=== PATIENT | female | born 1935 | race Caucasian/White ===

== ENCOUNTER 2018-09-12 08:45 | Inpatient (IN) | payer MEDICARE ==
--- NOTE | 2018-09-12 09:06 | ED ---
Abdominal Pain/Female - HPI Summary HPI Summary: An 83 y/o female presents to [facility] with a chief complaint of abdominal pain since 09/09/18. The patient reports N/V/D since this morning. At triage she rated her pain as a 4/10 in severity. She denies any fevers, chills, cough, CP, or SOB. She claims that she has not been eating as much lately, and has some increased frequency in urination and some dysuria, but no hematuria. She has a Hx of HTN and is taking medication for it. She denies a Hx of CHF or DM. She reports a Hx of colon cancer 13 years ago and a SHx of colon surgery and gallbladder surgery. She also reports that she has a hernia, but was told that it was nothing to worry about unless she has pain, which she currently has. Vital signs while in room - HR: 92 bpm, O2 Sat: 94, BP: 121/79. - History of Current Complaint Chief Complaint: EDAbdPain Stated Complaint: ABD PAIN, VOMITING PER PT. Time Seen by Provider: 09/12/18 08:58 Hx Obtained From: Patient, Family/Gang Bore Operator Onset/Duration: Sudden Onset, Lasting Days, Still Present Timing: Days Severity Initially: Moderate Severity Currently: Moderate Pain Intensity: 4 Pain Scale Used: 0-10 Numeric Location: Diffuse Radiates: No Character: Other: - Unable to describe Aggravating Factor(s): Nothing Alleviating Factor(s): Nothing Associated Signs and Symptoms: Positive: Urinary Symptoms, Nausea, Vomiting, Diarrhea. Negative: Fever, Cough, Chest Pain Allergies/Adverse Reactions: Allergies Allergy/AdvReac Type Severity Reaction Status Date / Time Penicillins Allergy Hives Verified 09/12/18 08:53 PMH/Surg Hx/FS Hx/Imm Hx Endocrine/Hematology History: Denies: Hx Diabetes, Hx Thyroid Disease Cardiovascular History: Reports: Hx Hypertension Denies: Hx Congestive Heart Failure, Hx Myocardial Infarction Respiratory History: Denies: Hx Asthma, Hx Chronic Obstructive Pulmonary Disease (COPD) GI History: Denies: Hx Ulcer Sensory History: Reports: Hx Contacts or Glasses Opthamlomology History: Reports: Hx Contacts or Glasses - Cancer History Cancer Type, Location and Year: colon cancer - w/ chemo April 2006 - Surgical History Surgery Procedure, Year, and Place: hysterectomy. gall bladder removal. colon tumor removal. cataract removal Infectious Disease History: No Infectious Disease History: Denies: Hx Clostridium Difficile, Hx Hepatitis, Hx Human Immunodeficiency Virus (HIV), Hx of Known/Suspected MRSA, Hx Shingles, Hx Tuberculosis, Traveled Outside the [place] in Last 30 Days - Family History Known Family History: Positive: Hypertension, Respiratory Disease - COPD (mother ) - Social History Alcohol Use: Rare Alcohol Amount: 1x week Substance Use Type: Reports: None Hx Tobacco Use: No Smoking Status (MU): Former Smoker Type: Cigarettes Have You Smoked in the Last Year: No Review of Systems Negative: Fever, Chills Negative: Chest Pain Negative: Cough Positive: Abdominal Pain, Vomiting, Diarrhea, Nausea Positive: dysuria, frequency. Negative: hematuria All Other Systems Reviewed And Are Negative: Yes Physical Exam - Summary Physical Exam Summary: GENERAL: Patient is a well-developed and nourished F who is lying comfortable in the stretcher. Patient is not in any acute respiratory distress. HEAD AND FACE: Normocephalic EYES: PERRLA, EOMI x 2. EARS: Hearing grossly intact. MOUTH: Oropharynx within normal limits. NECK: Supple, trachea is midline, no adenopathy, no JVD, no carotid bruit. CHEST: Symmetric, no tenderness at palpation LUNGS: Clear to auscultation bilaterally. No wheezing or crackles. CVS: Regular rate and rhythm, S1 and S2 present, no murmurs or gallops appreciated. ABDOMEN: Mild diffuse TTP. Bowel sounds are normal. No abdominal abnormal pulsations. EXTREMITIES: Full ROM in all major joints, no edema, no cyanosis or clubbing. NEURO: Alert and oriented x 3. No acute neurological deficits. Speech is normal and follows commands. SKIN: Dry and warm Triage Information Reviewed: Yes Vital Signs On Initial Exam: Initial Vitals Temp Pulse Resp BP Pulse Ox 99.1 F 98 18 117/78 96 09/12/18 08:49 09/12/18 08:49 09/12/18 08:49 09/12/18 08:49 09/12/18 08:49 Vital Signs Reviewed: Yes Diagnostics - Vital Signs Vital Signs Temp Pulse Resp BP Pulse Ox 09/12/18 08:49 99.1 F 98 18 117/78 96 - Laboratory Result Diagrams: 09/12/18 09:23 09/12/18 09:23 Lab Statement: Any lab studies that have been ordered have been reviewed, and results considered in the medical decision making process. - CT abdomen/pelvis CT Interpretation Completed By: Radiologist Summary of CT Findings: There is a large anterior abdominal wall hernia. The hernia contains the. antrum of the stomach which is moderately dilated itself. In addition more inferiorly in. the hernia there is small bowel herniation with dilated loops and collapsed distal loops. This possibility that this may be a source of small bowel obstruction should BE. considered. ED physician has reviewed this imaging report. - EKG 09:25 Cardiac Rate: NL - 81 bpm EKG Rhythm: Sinus Rhythm Summary of EKG Findings: EKG at 09:25 shows normal sinus rhythm at 81 bpm with PACs. Re-Evaluation - Re-Evaluation First Eval Re-Evaluation Time: 12:58 Change: Unchanged Comment: Informed patient about results and plan for admission. Abdominal Pain Fem Course/Dx - Course Course Of Treatment: An 83 y/o female presents to [facility] with a chief complaint of abdominal pain since 09/09/18. Workup is remarkable. The physical exam revealed mild diffuse TTP. EKG at 09:25 shows normal sinus rhythm at [address] abdomen/pelvis impression: There is a large anterior abdominal wall hernia. The hernia contains the. antrum of the stomach which is moderately dilated itself. In addition more inferiorly in. the hernia there is small bowel herniation with dilated loops and collapsed distal loops. In the ED course the patient was given Rocephin, Iodixanol (contrast) IV, Zofran IV and Protonix IV. Bloodwork and chemistries obtained. Urines are consitent with a UTI. Case discussed with Dr. Carvajla, surgery, who recommended admission. The patient will be admitted. Case discussed with hospitalist, Dr. Colvin. I discussed results with patient. The patient agrees with this plan. - Diagnoses Provider Diagnoses: UTI (urinary tract infection), Abdominal hernia with obstruction - Provider Notifications Discussed Care Of Patient With: Bravo Carvajal Time Discussed With Above Provider: 12:58 Instructed by Provider To: Other - recommended admission Discharge - Sign-Out/Discharge Documenting (check all that apply): Patient Departure - admit Patient Received Moderate/Deep Sedation with Procedure: No - Discharge Plan Condition: Fair Disposition: ADMITTED TO [facility] - Billing Disposition and Condition Condition: FAIR Disposition: Admitted to [facility] - Attestation Statements Document Initiated by Scribe: Yes Documenting Scribe: Stevan Arriaga Provider For Whom Scribe is Documenting (Include Credential): Alcides Ruvalcaba MD Scribe Attestation: I, Stevan Arriaga, scribed for Alcides Ruvalcaba MD on 09/13/18 at 0839. Scribe Documentation Reviewed: Yes Provider Attestation: The documentation as recorded by the Stevan dunlap accurately reflects the service I personally performed and the decisions made by me, Vik Ruvalcaba MD Status of Scribe Document: Viewed Consult Consult: At 13:[address] Colvin, Hospitalist, who accepted the patient for admission.
[2018-09-12] MEDS ORDERED: Ondansetron INJ* 2 MG/ML VIAL IV ONE (09:17)
[2018-09-12] MEDS ORDERED: Pantoprazole IV* 40 MG IV ONE (09:18)
[2018-09-12] MEDS ORDERED: NS 0.9% 1000 ML** 1,000 ML IV ONE (09:20)
[2018-09-12 09:29] LABS: ABS Basophils 0 10^3/ul (0-0.2); ABS Eosinophils 0 10^3/ul (0-0.6); ABS Lymphocytes 0.9 10^3/ul (1.0-4.8); ABS Monocytes 0.8 10^3/ul (0-0.8); ABS Neutrophils 7.6 10^3/ul (1.5-7.7); ABS Nucleated RBC 0 10^3/ul; Eosinophil % 0.3 %; Hematocrit 45 % (35-47); Hemoglobin 14.6 g/dl (12.0-16.0); Lymphocyte % 9.3 %; Mean Corpuscular HGB Conc 33 g/dl (31-36); Mean Corpuscular Hemoglobin 29 pg (27-31); Mean Corpuscular Volume 90 fL (80-97); Mean Platelet Volume 8.3 fL (7.4-10.4); Nucleated Red Blood Cells % 0; Platelet Count 237 10^3/ul (150-450); Red Blood Count 5.01 10^6/ul (4.00-5.40); Red Cell Distribution Width 14 % (10.5-15); White Blood Count 9.3 10^3/ul (3.5-10.8)
[2018-09-12 09:58] LABS: Albumin 4.2 g/dL (3.2-5.2); Albumin/Globulin Ratio 1.4 (1-3); BUN/Creatinine Ratio 36.8 (8-20); C Reactive Protein 5.15 mg/L (<8.01); Calcium 9.4 mg/dL (8.6-10.3); EGFR African American 45.9 (>60); EGFR Non-African American 37.9 (>60); Potassium 4.6 mmol/L (3.5-5.0); Total Bilirubin 0.8 mg/dL (0.2-1.0); Total Protein 7.2 g/dL (6.4-8.9)
[2018-09-12] MEDS ORDERED: Iodixanol* (CONTRAST) 320 MG/ML 100 ML SDV IV ONE (11:20)
[2018-09-12 12:51] LABS: Urine Appearance Cloudy; Urine Bacteria Absent (Absent); Urine Bilirubin Negative (Negative); Urine Blood 1+ (Negative); Urine Color Yellow; Urine Glucose Negative (Negative); Urine Ketones Negative (Negative); Urine Nitrite Positive (Negative); Urine Protein 1+(30 mg/dL) (Negative); Urine Red Blood Cell 2+(6-10/hpf) (Absent); Urine Specific Gravity > 1.060 (1.010-1.030); Urine Squamous Epithelial Cell Present (Absent); Urine Urobilinogen Negative (Negative); Urine White Blood Cell 3+(>20/hpf) (Absent)
[2018-09-12] MEDS ORDERED: cefTRIAXone(*) 1 GM in NS 0.9% 50 ML* 50 ML IVPB ONE (12:53)
[2018-09-12] MEDS ORDERED: cefTRIAXone(*) 1 GM ADVAN/BAG ONE (12:56)
[2018-09-12 13:43] LABS: Activated Partial Thrombo Time 50.3 seconds (26.0-36.3); INR 2.97 (0.77-1.02)
[2018-09-12] MEDS ORDERED: Ondansetron INJ* 2 MG/ML VIAL IV PRN (14:09)
[2018-09-12] MEDS ORDERED: Acetaminophen TAB* 325 MG PO PRN (14:09)
--- NOTE | 2018-09-12 15:51 | HP ---
CC: Dr. Dany Garcia; Dr. Bravo Carvajal * ADMISSION HISTORY AND PHYSICAL: DATE OF ADMISSION: 09/12/18 PRIMARY CARE PROVIDER: Dr. Dany Garcia. MY ATTENDING PHYSICIAN WHILE IN HOSPITAL: Dr. Kemar Colvin.* (DICTATED BY MEJIA ASKEW) CONSULTING SURGEON: Dr. Bravo Carvajal. CHIEF COMPLAINT: Nausea and vomiting x4 days. HISTORY OF PRESENT ILLNESS: Ms. García is an 83-year-old female with past medical history significant for colon cancer, status post resection, atrial fibrillation, heart failure, preserved ejection fraction, who presents to the emergency department after feeling off for approximately a month, and then last Wednesday on 09/09/18, she began to have significant nausea, vomiting and left lower quadrant abdominal pain, which was intermittently reproduced by palpation , not made worse with eating or drinking, but patient has not been able to eat or drink very much at all. The patient has been having increased urinary frequency without dysuria, or change in her urine. The patient has chronic urinary incontinence. The patient denies fevers or chills. The patient has been passing gas. The patient has been having intermittent nonbloody diarrhea without improvement in abdominal pain. The patient has been obstructed before, but states this is much worse than that was. The patient still feels hungry. The patient has a ventral hernia, which has been getting larger, but is not painful. The patient denies chest pain, shortness of breath, palpitations, dizziness. The patient has some chronic swelling in her legs, but this usually resolves by itself. The patient has noticed consistent weight gain. The patient denies shortness of breath or chest pain. The patient in the emergency department had a CT scan concerning for small bowel obstruction and laboratory data concerning for dehydration and urinary tract infection. Due to the concern for small bowel obstruction, I was asked to evaluate the patient for admission to the hospital. PAST MEDICAL HISTORY: AFib; hypertension; colon cancer, status post resection; urinary incontinence; osteoporosis; heart failure, preserved ejection fraction. PAST SURGICAL HISTORY: Cholecystectomy, colon resection, hysterectomy 4 years ago. MEDICATIONS: 1. Metoprolol tartrate 25 mg p.o. b.i.d. 2. Coumadin 5 mg p.o. daily. ALLERGIES: PENICILLIN. FAMILY HISTORY: The patient's father had bladder cancer. The patient's mother of CHF. The patient has a brother who of lung cancer. Sister who is alive and well. Daughter who of breast cancer. The patient has 5 other children who are alive and well. SOCIAL HISTORY: The patient quit smoking over 50 years ago. The patient drinks occasional alcohol. The patient denies illicit drug use. The patient drinks occasional decaff coffee. The patient worked in a bank for 20 years. The patient is . Her is in a [place] [facility]. She has 5 children. Her surrogate decision maker will be her older son, Robe García. REVIEW OF SYSTEMS: A 14-point review of systems were reviewed, is negative except as above in the HPI. PHYSICAL EXAMINATION GENERAL: The patient is an 83-year-old female who appears stated age and sitting comfortably in bed in no acute distress. VITAL SIGNS: Temperature 99.1, pulse rate 94, respiratory rate 23, oxygen saturation 87% on room air, blood pressure 111/76. HEENT: Head: Normocephalic, atraumatic. Sclerae anicteric. No conjunctival injection. Nasal mucosa moist. Oral mucosa moist. No pharyngeal erythema, discharge, or exudate. NECK: Supple, nontender. No lymphadenopathy. No carotid bruits auscultated. No JVD. RESPIRATORY: Clear to auscultation bilaterally. No wheezes or rhonchi. Good air exchange bilaterally. CARDIAC: Regular rate and rhythm. No clicks, murmurs, gallops, or rubs. Pulses 2+ in the bilateral dorsalis pedis, posterior tibialis, and radial areas. 1+ bilateral lower extremity edema. ABDOMEN: Soft, large ventral hernia, tender to palpation, old ventral hernia in the left lower quadrant. No hepatosplenomegaly. No abdominal bruits auscultated. No hepatojugular reflux. No rebound, guarding, non-tympanic to percussion. GENITOURINARY: No suprapubic or CVA tenderness. SKIN: Clean, dry, intact. No rash. NEUROLOGIC: Cranial nerves II through XII intact. No focal deficits. Alert and oriented x3. PSYCHIATRIC: Pleasant and cooperative. DIAGNOSTIC STUDIES/LAB DATA: White blood cell count 9.3, hemoglobin 14.6, platelet count 237. INR 2.97, aPTT 50.3. Sodium 132, potassium 4.6, chloride 106, carbon dioxide 17, anion gap 17, BUN 49, creatinine 1.33, glucose 145, lactic acid 1.6, calcium 9.4, bilirubin 0.8, AST 20, ALT 16, alkaline phosphatase 65. Troponin I 0.00 and 0.01, CRP is 5.15. Protein 7.2, albumin 4.2, globulin 3.0. Urine shows high specific gravity protein, blood, nitrite, leukocyte esterase, white blood cell counts, red blood cells, and squamous epithelial cells. Negative bacteria. Studies: Abdomen and pelvis CT read as large anterior abdominal wall hernia containing antrum of the stomach, which is moderately dilated itself. In addition, more inferiorly in the hernia there is small bowel herniation with dilated loops and collapsed distal loops, possibly that might be the source of small bowel obstruction could be considered. EKG shows normal sinus rhythm, supraventricular ectopy versus sinus arrhythmia. Rate is 83, QTc of 395. No ST segment elevation or suspected T-wave flattening in V6. No other hypertrophy or enlargement consistent with previous exam. ASSESSMENT AND PLAN/IMPRESSION: Ms. García is an 83-year-old female with past medical history significant for atrial fibrillation, hypertension, colonic cancer, heart failure, preserved ejection fraction who presents to the emergency department with 5 days of nausea, vomiting and was found to have a partial small bowel obstruction. The patient was admitted to the hospital for conservative care and G- tube placement and fluid resuscitation. 1. Partial small bowel obstruction. The patient's small bowel obstruction is likely due to adhesions. The patient was seen in consultation by Dr. Bravo Carvajal who does not believe this is due to her ventral hernia, which is easily reducible and nontender. The patient had NG tube placed due to her largely dilated stomach. The patient will have gastric and stool occult blood. The patient had a colonoscopy in 2017, which showed hypoplastic polyps. This does not appear to be the cause of the patient's SBO. The patient will be n.p.o. The patient will receive lactated Ringer's at 100 mL/hour. The patient received normal saline 1 L in the emergency department. We will have to be judicious with fluids due to heart failure with preserved ejection fraction. The patient does not need surgery at this time. We will repeat abdominal imaging as needed. Lactic acid is normal. 2. Atrial fibrillation. The patient is currently in normal sinus rhythm, possible supraventricular beats versus sinus arrhythmia due to dehydration. We will continue patient's metoprolol. We will hold patient's Coumadin in case she needs to have surgery, we will not reverse with vitamin K at this time. 3. Hypertension. The patient is currently normotensive. Continue patient's metoprolol. 4. Heart failure. Preserved ejection fraction, judicious use of fluids as above. The patient is not currently in heart failure exacerbation. 5. DVT prophylaxis: The patient is currently therapeutic on her Coumadin and will have SCDs. 6. FEN: The patient will be n.p.o. and have fluids as above. TIME SPENT: Approximately 60 minutes was spent on the admission of this patient , 30 of which was spent [id number] with the patient obtaining history and physical and discussing treatment plan. This plan was discussed with my attending, Dr. Kemar Colivn, and he is in agreement. MEJIA ASKEW [id number]/[facility] #: [id number] MICKEY
[2018-09-12] MEDS: Lactated Ringers 1000 ML Bag* 1,000 ML IV SCH (15:52)
--- NOTE | 2018-09-12 19:18 | CONS ---
CC: Dr. Dany Garcia, [facility] * CONSULTATION REPORT: DATE OF CONSULT: 09/12/18 REFERRING PROVIDER: Dr. Kemar Colvin. REASON FOR CONSULT: Nausea and vomiting and diarrhea. HISTORY OF PRESENT ILLNESS: Ms. Alma Rosa García is a very pleasant 83-year- old woman with a past medical history significant for colon cancer, status post right hemicolectomy over 10 years ago; atrial fibrillation, on Coumadin; heart failure with a preserved ejection fraction, who presented to the emergency room with complaints of not feeling well over the last month or so. She has some intermittent nausea with occasional vomiting and is also having some lower quadrant abdominal pain with diarrhea. This has been something that has been going on for several months. She states she has a longstanding upper midline incision, which protrudes quite a bit and occasionally becomes firm with some vomiting, but this is always reducible and this resolves. Today, she had lower abdominal discomfort and some more vomiting and presented to the emergency room. She states she is not having any discomfort over the hernia and it is easily reducible. Her pain is improved and nausea is also resolved with some Zofran. She was noted to be afebrile with stable vital signs. Laboratory workup included a normal white blood cell count without shift. BUN and creatinine were 41 and 1.33 and her INR was 2.97, on Coumadin. Lactic acid was 1.6 and C- reactive protein was also normal. She underwent a CT scan of the abdomen and pelvis. I did review these images. It shows a hernia in the upper midline of the abdomen which contained stomach as well as a separate loop of small bowel. There was contrast in the stomach passing into the proximal portion of the duodenum, but none further. The bowel does appear to be somewhat dilated. There is no evidence of volvulus. There is, however, fluid-filled dilated small bowel in the abdomen distal to the hernia, but there appears to be some small bowel distally which is less distended. There is an apparent anastomosis in the right upper quadrant from previous colectomy and the colon is collapsed. The contrast does not pass down through the entire small bowel. Surgical consultation was obtained. PAST MEDICAL HISTORY: 1. Atrial fibrillation. 2. Hypertension. 3. Colon cancer, status post right hemicolectomy. 4. Urinary incontinence. 5. Osteoporosis. 6. Heart failure with preserved ejection fraction. PAST SURGICAL HISTORY: 1. Open right hemicolectomy. 2. Laparoscopic cholecystectomy. 3. Hysterectomy. MEDICATIONS: Include: 1. Metoprolol. 2. Coumadin. ALLERGIES: To PENICILLIN. SOCIAL HISTORY: She quit smoking over 50 years ago. She drinks alcohol on social basis. She has family nearby. Her is presently in a skilled nursing, but she has 5 children and several of her sons are present today. REVIEW OF SYSTEMS: A 14-point review of systems is negative other than above. PHYSICAL EXAM: Temperature 99.3, pulse 76, blood pressure 134/55. In general, she is a well-developed, overweight female, who is very pleasant, appears to be in no apparent distress. Her lungs were clear to auscultation with normal respiratory effort. Her heart was regular rate and rhythm without murmurs, rubs , or gallops. Her abdomen is soft and nondistended. She has a protuberance in the upper midline of the abdomen with an easily reducible, nontender, soft ventral hernia with a fascial defect of at least 12 to 13 cm in diameter. She had diminished bowel sounds throughout. She has no tenderness throughout the entire abdomen and otherwise nondistended. Extremities showed no cyanosis or edema. IMPRESSION AND PLAN: Longstanding ventral hernia containing stomach and loop of small bowel. This is easily reducible and nontender. CT scan as above, there is concern for a partial small bowel obstruction. Clinically, she has had some nausea and vomiting, which is resolved. She is also having large amounts of diarrhea including today and has been passing flatus. At this point, I do not believe that the hernia is the source of any of her symptoms as this does not appear to have changed in characteristics and on exam is easily reducible. She certainly may well have an adhesive partial small bowel obstruction by reviewing the CT scan, but at this point, with her clinical exam rather benign, no tachycardia, leukocytosis and a normal lactic acid, I would recommend observation with placement of an NG tube and continued IV fluids and keeping her n.p.o. for now. I will order abdominal x-rays tomorrow morning to follow up on the oral contrast. Certainly, if it worsens or has more consistent symptoms of obstruction, she may require laparoscopy and/or exploratory laparotomy. We will follow the patient closely with you. Her Coumadin will be held right now, but I do not see a reason to aggressively reverse it at this point. The above was all discussed with MEJIA Allred. [id number]/[facility] #: [id number] MICKEY
[2018-09-12] MEDS ORDERED: Metoprolol Tartrate TAB* 25 MG PO SCH (21:00)
[2018-09-13] MEDS: Lactated Ringers 1000 ML Bag* 1,000 ML IV SCH (03:03)
[2018-09-13 07:23] LABS: INR 3.14 (0.77-1.02)
[2018-09-13] MEDS ORDERED: Metoprolol Tartrate IV* 1 MG/ML 5 ML VIAL IV PRN (08:40)
[2018-09-13] MEDS ORDERED: Magnesium Sulfate 2 GM IV* 2 GM/50 ML BAG IVPB ONE (09:05)
[2018-09-13] MEDS: Metoprolol Tartrate IV* 1 MG/ML 5 ML VIAL IV SCH ×3 (09:20→20:32)
[2018-09-13] MEDS: cefTRIAXone(*) 1 GM in NS 0.9% 50 ML* 50 ML IVPB SCH (13:55)
--- NOTE | 2018-09-13 16:12 | PN ---
Subjective Date of Service: 09/13/18 Interval History: Pt states that her abdomen is feeling better today. She states that she has had no pain today; prior, she had pain across the lower abdomen. She c/o increased urination, diarrhea, and brown emesis, which she states was like coffee grounds x2. She states that she had decreased appetite and oral intake and has been NPO since Wednesday. Pt has h/o mutliple abd surgeries, including winter, hysterectomy, and colon resection. Pt has large ventral hernia, which she has had for "a long time." Pt states that she has had increased urination for the last couple weeks. Pt is incontinent of urine usually, but states that her poise pads were becoming saturated sooner than usual. Currently, pt denies CP, cough, fever, abd pain, n/v/d. Pt c/o pain in b/l LE, L>R. Objective Active Medications: Acetaminophen (Tylenol Tab*) 650 mg PO Q6H PRN Lactated Ringer's (Lactated Ringers 1000 Ml Bag*) 1,000 mls @ 100 mls/hr IV PER RATE ELLEN Ceftriaxone Sodium 1 gm/ (Sodium Chloride) 50 mls @ 200 mls/hr IVPB Q24H ELLEN Metoprolol Tartrate (Lopressor Iv*) 5 mg IV Q6H ELLEN Ondansetron HCl (Zofran Inj*) 4 mg IV Q6H PRN Vital Signs: Temp Pulse Resp BP Pulse Ox 98.1 F 82 18 141/55 95 09/13/18 15:24 09/13/18 15:24 09/13/18 15:24 09/13/18 15:24 09/13/18 15:24 Oxygen Devices in Use Now: None Appearance: Pt is resting in bed. She appears in no acute distress. Eyes: No Scleral Icterus, PERRLA Ears/Nose/Mouth/Throat: NL Teeth, Lips, Gums, Clear Oropharnyx, Mucous Membranes Moist Neck: NL Appearance and Movements; NL JVP, Trachea Midline Respiratory: Symmetrical Chest Expansion and Respiratory Effort, Clear to Auscultation Cardiovascular: NL Sounds; No Murmurs; No JVD, RRR Abdominal: - - Large ventral hernia present; it is reducible and nontender. Bowel sounds hypoactive. Abd nontender to palpation. With HSM. Extremities: No Clubbing, Cyanosis, - - RLE with trace edema; LLE with 1+ pitting edema and TTP. B/l LE with multiple small varicosities. Neurological: Alert and Oriented x 3 Result Diagrams: 09/12/18 09:23 09/12/18 09:23 Microbiology and Other Data: Microbiology 09/12/18 12:37 Urine Culture - Preliminary Urine Escherichia Coli Assess/Plan/Problems-Billing Assessment: Pt is an 83yof with PMHx AF, HFpEF, s/p R hemicolectomy, HTN who presents with SBO and UTI. - Patient Problems (1) Small bowel obstruction Comment: -Consulted surgery, thank you for input - NPO with NGT to suction (2) Urinary tract infection Comment: -Positive cutlure revealing large amoutn of E. coli -Continue Ceftriaxone (3) Lower extremity pain, inferior Comment: -? venous stasis vs. DVT -US LLE (4) Atrial fibrillation Comment: -Sinus rate with irregular rhythm on tele -Continue metoprolol -Hold Coumadin in case of surgery -INR supratherapeutic; monitor daily for restart (5) Hypertension Comment: -Stable; continue metoprolol -Monitor (6) Heart failure with preserved ejection fraction Comment: -Not in acute exacerbation -Monitor (7) DVT prophylaxis Comment: -INR supratherapeutic; hold Coumadin (8) Full code status Status and Disposition: Inpatient. Discharge when stable.
--- NOTE | 2018-09-13 17:29 | PN ---
Progress Note - Progress Note Date of Service: 09/13/18 SOAP: Subjective: Feels about the same-nurses report small BM, but no flatus. No abdominal pain Hungry and wants to eat Objective: Temp Pulse Resp BP Pulse Ox 98.1 F 82 18 141/55 95 09/13/18 15:24 09/13/18 15:24 09/13/18 15:24 09/13/18 15:24 09/13/18 15:24 NGT approximately 100 cc bilious fluid over course of day PEX: Abd is soft and non-distended. There is no tenderness. Bowel sounds are present and are hypoactive. Upper midline hernia remains non-tender and is easily reducible. AXR-dilated small bowel consistent with SBO, however there is oral contrast into the left colon and rectum Assessment: SBO-minimal NGT output No pain Worrisome AXR today, although clinically looks and feels better Plan: D/C NGT Ice chips po Increase activity Follow for now-discussed with patient and family.
[2018-09-14] MEDS: Metoprolol Tartrate IV* 1 MG/ML 5 ML VIAL IV SCH ×4 (02:58→20:52)
[2018-09-14 06:54] LABS: Hematocrit 39 % (35-47); Mean Corpuscular HGB Conc 34 g/dl (31-36); Mean Corpuscular Hemoglobin 30 pg (27-31); Mean Corpuscular Volume 88 fL (80-97); Mean Platelet Volume 8.6 fL (7.4-10.4); Platelet Count 191 10^3/ul (150-450); Red Blood Count 4.38 10^6/ul (4.00-5.40); Red Cell Distribution Width 14 % (10.5-15); White Blood Count 5.6 10^3/ul (3.5-10.8)
[2018-09-14 06:56] LABS: INR 2.16 (0.77-1.02)
[2018-09-14 07:15] LABS: Calcium 8.6 mg/dL (8.6-10.3); EGFR African American 97.8 (>60); EGFR Non-African American 80.9 (>60); Magnesium 2.1 mg/dL (1.9-2.7); Potassium 3.9 mmol/L (3.5-5.0)
--- NOTE | 2018-09-14 10:17 | PN ---
Progress Note - Progress Note Date of Service: 09/14/18 SOAP: Subjective: Feels much better-had BM last night, no N/V and wants to eat No N/v No abominal pain Objective: Temp Pulse Resp BP Pulse Ox 98.1 F 79 20 134/60 96 09/14/18 07:51 09/14/18 07:51 09/14/18 08:00 09/14/18 07:51 09/14/18 07:51 Intake & Output 09/12/18 09/13/18 09/14/18 09/15/18 06:59 06:59 06:59 06:59 Intake Total 2024 190 Output Total 400 Balance 1624 1899 Weight 214 lb 1.6 oz Intake: IV Fluids 2024 1800 lactated ringers 800 IVPB 100 ABX - CEFTRIAXONE 50 Oral 0 0 Output: NG Tube Drainage Amount 400 Other: Estimated Void Large Large # Bowel Movements 1 1 Estimated Stool Amount Small Large # Voids 2 2 PEX: Abd is soft and non-distended. Hernia less protuberant and easily reduced. Bowel sounds are present and hyperactive, some high pitched sounds. No tenderness Assessment: SBO-clinically improving, BM last night Plan: Clear liquids po Observe Discussed with patient and family.
--- NOTE | 2018-09-14 12:43 | PN ---
Subjective Date of Service: 09/14/18 Interval History: Pt states she feels "100% better than yesterday." She had a BM this morning and denies fever, abd pain. She has tolerated coffee and ice chips, and her diet will advance to clear liquids for lunch. Pt has been ambulating and passes gas. Pt mentions that she has had some depression recently. She states that this has occurred since her daughter and her has been placed in a longterm, all within the last couple months. Pt states that she has not had depression prior. She denies difficulty sleeping or excessively depressed mood. Objective Active Medications: Acetaminophen (Tylenol Tab*) 650 mg PO Q6H PRN Ceftriaxone Sodium 1 gm/ (Sodium Chloride) 50 mls @ 200 mls/hr IVPB Q24H ELLEN Metoprolol Tartrate (Lopressor Iv*) 5 mg IV Q6H ELLEN Ondansetron HCl (Zofran Inj*) 4 mg IV Q6H PRN Vital Signs: Temp Pulse Resp BP Pulse Ox 98.0 F 87 16 130/59 94 09/14/18 11:28 09/14/18 11:28 09/14/18 11:28 09/14/18 11:28 09/14/18 11:28 Oxygen Devices in Use Now: None Appearance: Pt is sitting in chair. She appears well, in no acute distress. Eyes: No Scleral Icterus, PERRLA Ears/Nose/Mouth/Throat: NL Teeth, Lips, Gums, Clear Oropharnyx, Mucous Membranes Moist Neck: NL Appearance and Movements; NL JVP, Trachea Midline Respiratory: Symmetrical Chest Expansion and Respiratory Effort, Clear to Auscultation Cardiovascular: NL Sounds; No Murmurs; No JVD, RRR Abdominal: No Hepatosplenomegaly - BS hypoactive in all quadrants. Large reducible, nontender hernia present above umbilicus. Abd nontender to palpation. Extremities: No Clubbing, Cyanosis, - - Trace edema in b/l LE Neurological: Alert and Oriented x 3 Result Diagrams: 09/14/18 05:52 09/14/18 05:52 Microbiology and Other Data: Microbiology 09/12/18 12:37 Urine Culture - Preliminary Urine Escherichia Coli Assess/Plan/Problems-Billing Assessment: Pt is an 83yof with PMHx AF, HFpEF, s/p R hemicolectomy, HTN who presents with SBO and UTI. - Patient Problems (1) Small bowel obstruction Comment: -Consulted surgery, thank you for input -NGT d/c; advance to clear liquid diet (2) Urinary tract infection Comment: -Positive cutlure revealing large amount of E. coli -Continue Ceftriaxone (Day 3) (3) Lower extremity pain, inferior Comment: -Edema and TTP, without erythema or warmth; likely due to venous stasis -US negative for DVT (4) Atrial fibrillation Comment: -Sinus rate with irregular rhythm on tele -Continue metoprolol -INR WNL; continue to hold Warfarin due to potential for surgery; consider restart tomorrow after 24hours on advanced diet (5) Reactive depression (situational) Comment: -Pt admits to occasional depressed mood without difficulty sleeping -Discussed medication vs. counceling, and pt would like information on counceling in her area (6) Hypertension Comment: -Stable; continue metoprolol -Monitor (7) Heart failure with preserved ejection fraction Comment: -Not in acute exacerbation -Monitor (8) DVT prophylaxis Comment: -Continue SCDs -INR WNL; will look to surgery for Coumadin restart (9) Full code status Status and Disposition: Inpatient. Discharge when stable.
[2018-09-14] MEDS: cefTRIAXone(*) 1 GM in NS 0.9% 50 ML* 50 ML IVPB SCH (13:38)
[2018-09-14] MEDS ORDERED: Warfarin TAB(*) 5 MG PO SCH (17:00)
[2018-09-15] MEDS: Metoprolol Tartrate IV* 1 MG/ML 5 ML VIAL IV SCH ×2 (02:43→08:18)
[2018-09-15 07:24] LABS: INR 1.67 (0.77-1.02)
[2018-09-15 08:30] VITALS: BP 135/75
[2018-09-15] MEDS: cefTRIAXone(*) 1 GM in NS 0.9% 50 ML* 50 ML IVPB SCH (13:02)
--- NOTE | 2018-09-15 16:57 | PN ---
Hospitalist Progress Note Date of Service: 09/15/18 Pt discharged today. Augmentin ordered initially, but discontinued, as pt has allergy to Penicillins. Nitrofurantoin called in to pt's pharmacy.
--- NOTE | 2018-09-15 23:46 | DS ---
DISCHARGE SUMMARY: DATE OF ADMISSION: 09/12/18 DATE OF DISCHARGE: 09/15/18 PRIMARY CARE PROVIDER: Dr. Dany Garcia. ATTENDING PHYSICIAN: Charlotte Zuniga MD * (dictated by MEJIA Alatorre). PRIMARY DIAGNOSES: 1. Small bowel obstruction. 2. Urinary tract infection, Escherichia coli. SECONDARY DIAGNOSES: 1. Atrial fibrillation. 2. Hypertension. 3. Colon cancer, status post resection. 4. Heart failure with preserved ejection fraction. 5. Urinary incontinence. 6. Osteoporosis. STUDIES WHILE IN THE HOSPITAL: Abdomen/pelvis CT, 09/12/18, impression: There is a large anterior abdominal wall hernia. The hernia contains the antrum of the stomach which is moderately dilated itself, and in addition more inferiorly in the hernia, there is small bowel herniation with dilated loops and collapsed distal loops. Possibility that this may be a source of small bowel obstruction should be considered. EKG, 09/12/18: Sinus rhythm, normal P axis, ventricular rate 60 to 99, atrial premature complex, SB complex with short R-R interval. Abdomen x-ray, 09/13/18, impression: Dilated loops of small bowel consistent with small bowel obstruction, no free air is identified. Venous Doppler study of the left lower extremity, 09/13/18, impression: No acute findings, no evidence of deep vein thrombosis. DISCHARGE MEDICATIONS: Home medications: 1. Warfarin 5 mg p.o. daily. 2. Metoprolol tartrate 25 mg p.o. daily. New home medications: 1. Nitrofurantoin 100 mg p.o. daily x5 days. HISTORY OF PRESENT ILLNESS/HOSPITAL COURSE: Ms. García is an 83-year-old female with a past medical history as described above, who presented to the ER on 09/12/18 with complaints of feeling off for 1 month. She states that 3 days prior to seeking medical attention, she began to have nausea, vomiting and pain in the left lower quadrant. She was not able to tolerate p.o. intake. It is noted that the patient does have a ventral hernia that is large, but it is not painful and it is easily reducible and is chronic. In the emergency department , the patient received a full workup and CT scan demonstrated imaging that was concerning for small bowel obstruction. Laboratory data also revealed dehydration and urinary tract infection. The patient was then admitted and surgical consult was ordered. Her warfarin was discontinued due to possibility for surgical intervention. The surgical group saw the patient and intervened with observation, NG tubing, IV fluids and n.p.o. The patient's diet was slowly advanced and her nausea and vomiting subsided. She was able to tolerate a soft diet by the end of her stay. The NG tube was eventually removed prior to advancing of the diet. The patient's urinary tract infection was treated with ceftriaxone, which was switched to nitrofurantoin at discharge. It was noted that the patient had lower extremity calf tenderness of the left lower extremity. Ultrasound was performed and revealed no DVT. On the day of discharge, the patient's Coumadin was restarted. She denied chest pain, shortness of breath or abdominal pain. She admitted to 1 loose stool, but denied abdominal pain, fever, nausea or vomiting. She also admits to passing flatus on occasion. She continues to have lower extremity pain and venous stasis skin changes of the lower extremity. Ms. García is stable for discharge. The patient noted that she occasionally feels down or depressed. She relays that she recently put her in a care home due to severe dementia and that her daughter recently as well. We discussed medications versus counseling and the patient declined both at that time. PHYSICAL EXAMINATION: Her vital signs are temperature 98.2 orally, heart rate 72, respiratory rate 18, oxygen saturation 95%, blood pressure 135/75. Ms. García is a well developed, well nourished, obese elderly woman, who is sitting up in bed. She is in no acute distress. HEENT: Visual castañeda are grossly intact. Pupils are equally round and reactive to light. Her extraocular movements are intact. Sclerae are without icterus. Hearing is grossly intact. Oral mucous membranes are moist and without lesions. Pharynx is clear. Neck with full range of motion. The thyroid is not palpable. The trachea is at midline. There is no cervical lymphadenopathy. Cardiovascular: Regular rate and rhythm, S1 and S2 present. There are no murmurs, rubs, or gallops. There is no JVD. Respiratory: Symmetrical chest expansion with no use of accessory muscles. Lungs are clear to auscultation. There is no rhonchi , wheezes, or rubs. Abdomen: There is a large protruding ventral hernia, which is visible without abdominal strain. The hernia is easily reducible. There are bowel sounds in all quadrants. The abdomen is nontender to palpation in all quadrants including hernia. There is no hepatosplenomegaly. Extremities : Skin is warm and smooth bilaterally. There is no clubbing or cyanosis. There is bilateral lower extremity edema with skin changes suggestive of venous stasis. Radial and pedal pulses are palpable. Neuro: The patient is awake. She is alert and oriented. Her cranial nerves are grossly intact. She is able to move all of her extremities. DISCHARGE PLAN: Ms. García will be discharged to home. ACTIVITY: As tolerated. DIET: Heart healthy, low residue. Avoid fatty/spicy foods. Slowly advance diet in order to avoid to GI upset. MEDICATIONS: See above. EDUCATION: 1. Follow up with primary care provider within 1 week to discuss recent hospitalization, depression, lower extremity pain and edema. 2. The patient declined depression medications and counseling services. She was advised to consider these if grief/depression continues. 3. Return to the ER or nearest hospital if she experience any worsening of symptoms, shortness of breath, lightheadedness, dizziness, chest discomfort, high fevers, chills, night sweats, loss of consciousness or any other worrisome signs or symptoms. This is a summarized report of a complex medical history and hospital stay. For further details, please see the entire medical record. TIME SPENT: Approximately 40 minutes was spent on this discharge, greater than half of that time was spent [id number] with the patient discussing the discharge plans and instructions. MEJIA ECHEVARRIA [id number]/[facility] #: [id number] MICKEY
== END 2018-09-15 14:35 | disposition home or self-care (01) | DRG 394 ==
LOC: ED 08:45 → MED 14:09 → OBSVTOIN 15:00
PROVIDERS: ADMIT Internal Medicine; ATTEND Internal Medicine
PROC: 0D9670Z Drainage of Stomach with Drainage Device, Via Natural or Artificial Opening (ICD-10-PCS; principal; 2018-09-12)
DX: K43.6 Other and unspecified ventral hernia with obstruction, without gangrene (principal); N39.0 Urinary tract infection, site not specified; I50.30 Unspecified diastolic (congestive) heart failure; B96.20 Unspecified Escherichia coli [E. coli] as the cause of diseases classified elsewhere; I48.91 Unspecified atrial fibrillation; I11.0 Hypertensive heart disease with heart failure; R32 Unspecified urinary incontinence; M81.0 Age-related osteoporosis without current pathological fracture; I49.3 Ventricular premature depolarization; F32.9 Major depressive disorder, single episode, unspecified; E86.0 Dehydration; I87.8 Other specified disorders of veins; E66.9 Obesity, unspecified; Z88.0 Allergy status to penicillin; Z92.21 Personal history of antineoplastic chemotherapy; Z82.49 Family history of ischemic heart disease and other diseases of the circulatory system; Z83.6 Family history of other diseases of the respiratory system; Z79.01 Long term (current) use of anticoagulants; Z85.038 Personal history of other malignant neoplasm of large intestine; Z90.49 Acquired absence of other specified parts of digestive tract; Z90.710 Acquired absence of both cervix and uterus; Z87.891 Personal history of nicotine dependence; Z80.1 Family history of malignant neoplasm of trachea, bronchus and lung; Z68.34 Body mass index [BMI] 34.0-34.9, adult; R19.7 Diarrhea, unspecified
CPT/HCPCS: 36415; 71045; 74019; 74177; 80048; 80053; 81003; 81015; 83605; 83690; 83735; 84484; 85025; 85027; 85610; 85730; 86140; 87077; 87086; 87186; 93005; 99284; A9270-GY; G8987-GO-CI; G8988-GO-CI; G8989-GO-CI; J0696; J2405; J3475; J3490; Q9967

== ENCOUNTER 2018-09-22 08:31 | Emergency (ER) | payer MEDICARE ==
--- OUTSIDE RECORDS SUMMARY | 2018-09-22 08:57 | XMS REPORT | Continuity of Care Document ---
:1935 External Reference #:[id number] Author Name Lisa Arcos Care Team Providers Name Role Phone Dany Garcia MD Primary Care Physician Unavailable Payers Date Identification Numbers Payment Provider Subscriber Policy Number: [id number] Medicare Alma Rosa García PayID: [id number] [address] [place] [address] Advance Directives Description No Information Available Problems Date Description Provider Status Onset: 03/01/2016 Atrial fibrillation MEJIA Kenney Active Onset: Essential hypertension Active Onset: Osteoporosis Active Family History Description No Information Available Social History Type Date Description Comments Sex Unknown Marital Status Occupation Retired Occupation Banking Tobacco Use Start: Unknown End: Former Cigarette Smoker Unknown Smoking Status Reviewed: 12/31/17 Former Cigarette Smoker ETOH Use Occasionally consumes beer Tobacco Use Start: Unknown End: Patient is a former smoker quit in 1974 Unknown Recreational Drug Use Denies Drug Use Exercise Type/Frequency Does not exercise Allergies, Adverse Reactions, Alerts Date Description Reaction Status Severity Comments 03/13/2016 Penicillin Contact dermatitis Active Medications Medication Date Status Form Strength Qnty SIG Indications Ordering Provider Coumadin Active Tablets 3mg 180tabs take 1-2 Qutaybeh 016 tablets S. daily in [facility], the M.D. evening as directed Metoprolol Active Tablets 25mg 1 by mouth Unknown Tartrate 000 twice a day Imodium A-D Active Capsules 2mg 1 by mouth Unknown 000 twice a day, as needed diarrhea Alendronate Hx Tablets 70mg 4tabs 1 by mouth Qutaybeh Sodium 016 - weekly S. (Saturdays Beti Parsons ) Tc Xarelto Hx Tablets 20mg 30tabs 1 by mouth Lorenzo 016 - every day S. 04/25 Roel Beckford M.D. Vitamin D 0 Hx prn Unknown 000 - 017 Immunizations Description No Information Available Vital Signs Date Vital Result Comment 12/31/2017 7:58am Height 63 inches 5'3" Weight 212.00 lb w/shoes Heart Rate 70 /min BP Systolic Sitting 120 mmHg lue lg cuff BP Diastolic Sitting 68 mmHg lue lg cuff BMI (Body Mass Index) 37.6 kg/m2 04/20/2017 2:30pm Height 63 inches 5'3" Weight 241.00 lb Heart Rate 72 /min BP Systolic Sitting 124 mmHg Lue large cuff BP Diastolic Sitting 66 mmHg Lue large cuff BP Systolic Standing 122 mmHg Lue BP Diastolic Standing 68 mmHg Lue Respiratory Rate 18 /min BMI (Body Mass Index) 42.7 kg/m2 10/09/2016 8:17am Height 63 inches 5'3" Weight 236.00 lb Heart Rate 70 /min BP Systolic Sitting 124 mmHg left arm, large cuff BP Diastolic Sitting 76 mmHg left arm, large cuff BP Systolic Standing 118 mmHg left arm, large cuff BP Diastolic Standing 74 mmHg left arm, large cuff BMI (Body Mass Index) 41.8 kg/m2 Ejection Fraction 62% rest 04/02/16 Nem 04/15/2016 2:35pm Height 63 inches 5'3" Weight 239.75 lb with shoes Heart Rate 82 /min BP Systolic Sitting 138 mmHg LA, large BP Diastolic Sitting 72 mmHg LA, large BMI (Body Mass Index) 42.5 kg/m2 Ejection Fraction 55-60% Jigar 02/20/16 03/13/2016 8:54am Height 63 inches 5'3" Weight 234.00 lb w/o shoes Heart Rate 86 /min BP Systolic Sitting 110 mmHg Lue, lg cuff BP Diastolic Sitting 74 mmHg Lue, lg cuff BP Systolic Standing 106 mmHg Lue BP Diastolic Standing 70 mmHg Lue Respiratory Rate 16 /min BMI (Body Mass Index) 41.4 kg/m2 Ejection Fraction 55-60% as of 02/20/16 Jigar Results Test Date Facility Test Result H/L Range Note Inr/Protime 09/01/2018 [facility] Inr 2.71 High 0.77-1.[address] [place] [address] [phone] Inr/Protime 08/18/2018 [facility] Inr 1.75 High 0.77-1.[address] [place] [address] [phone] Inr/Protime 07/21/2018 [facility] Inr 2.29 High 0.77-1.[address] [place] [address] [phone] Inr/Protime 07/06/2018 [facility] Inr 1.96 High 0.77-1.[address] [place] [address] [phone] Inr/Protime 04/20/2018 [facility] Inr 3.14 High 0.77-1.[address] [place] [address] [phone] Inr/Protime 03/16/2018 [facility] Inr 2.97 High 0.77-1.[address] [place] [address] [phone] Inr/Protime 02/22/2018 [facility] Inr 2.73 High 0.77-1.[address] [place] [address] [phone] Inr/Protime 01/25/2018 [facility] Inr 2.10 High 0.77-1.[address] [place] [address] [phone] Inr/Protime 01/10/2018 [facility] Inr 2.81 High 0.77-1.[address] [place] [address] [phone] Inr/Protime 12/27/2017 [facility] Inr 1.94 High 0.77-1.[address] [place] [address] [phone] Inr/Protime 12/06/2017 [facility] Inr 1.88 High 0.77-1.[address] [place] [address] [phone] Inr/Protime 11/15/2017 [facility] Inr 2.27 High 0.77-1.[address] [place] [address] [phone] Inr/Protime 10/29/2017 [facility] Inr 2.33 High 0.77-1.[address] [place] [address] [phone] Inr/Protime 10/15/2017 [facility] Inr 3.14 High 0.77-1.[address] [place] [address] [phone] Inr/Protime 09/30/2017 [facility] Inr 3.29 High 0.77-1.[address] [place] [address] [phone] Inr/Protime 09/20/2017 [facility] Inr 2.15 High 0.77-1.[address] [place] [address] [phone] Inr/Protime 08/31/2017 [facility] Inr 1.64 High 0.77-1.[address] [place] [address] [phone] Inr/Protime 08/24/2017 [facility] Inr 1.43 High 0.77-1.[address] [place] [address] [phone] Inr/Protime 07/26/2017 [facility] Inr 2.35 High 0.77-1.[address] [place] [address] [phone] Inr/Protime 06/01/2017 [facility] Inr 1.63 High 0.89-1.[address] [place] [address] [phone] Inr/Protime 05/04/2017 [facility] Inr 2.11 High 0.89-1.[address] [place] [address] [phone] Inr/Protime 04/06/2017 [facility] Inr 2.44 High 0.89-1.[address] [place] [address] [phone] Inr/Protime 03/05/2017 [facility] Inr 2.13 High 0.89-1.[address] [place] [address] [phone] Inr/Protime 02/19/2017 [facility] Inr 2.15 High 0.89-1.[address] [place] [address] [phone] Inr/Protime 02/05/2017 [facility] Inr 2.87 High 0.89-1.[address] [place] [address] [phone] Inr/Protime 01/26/2017 [facility] Inr 3.11 High 0.89-1.[address] [place] [address] [phone] Inr/Protime 01/12/2017 [facility] Inr 3.22 High 0.89-1.[address] [place] [address] [phone] Inr/Protime 12/21/2016 [facility] Inr 3.04 High 0.89-1.[address] [place] [address] [phone] Inr/Protime 11/19/2016 [facility] Inr 2.71 High 0.89-1.[address] [place] [address] [phone] Inr/Protime 10/22/2016 [facility] Inr 2.90 High 0.89-1.[address] [place] [address] [phone] Inr/Protime 09/24/2016 [facility] Inr 2.92 High 0.89-1.[address] [place] [address] [phone] Inr/Protime 09/14/2016 [facility] Inr 1.50 High 0.89-1.[address] [place] [address] [phone] Inr/Protime 08/14/2016 [facility] Inr 2.44 High 0.89-1.[address] [place] [address] [phone] Laboratory test 08/11/2016 [facility] Surgical SEE RESULT [address] [place] [place] [address] [phone] Inr/Protime 07/24/2016 [facility] Inr 2.18 High 0.89-1.[address] [place] [address] [phone] Inr/Protime 07/09/2016 [facility] Inr 2.38 High 0.89-1.[address] [place] [address] [phone] Inr/Protime 06/25/2016 [facility] Inr 2.50 High 0.89-1.[address] [place] [address] [phone] Inr/Protime 06/18/2016 [facility] Inr 1.19 High 0.89-1.[address] [place] [address] [phone] Inr/Protime 06/11/2016 [facility] Inr 2.07 High 0.89-1.[address] [place] [address] [phone] Inr/Protime 05/27/2016 [facility] Inr 1.75 High 0.89-1.[address] [place] [address] [phone] Inr/Protime 05/19/2016 [facility] Inr 2.98 High 0.89-1.[address] [place] [address] [phone] Inr/Protime 05/14/2016 [facility] Inr 3.50 High 0.89-1.[address] [place] [address] [phone] Inr/Protime 05/07/2016 [facility] Inr 2.37 High 0.89-1.[address] [place] [address] [phone] 1 SEE RESULT BELOW Name: ALMA ROSA GARCÍA : [address]: Eduardo Perdue MD Acct: [id number] Unit: [id number] AGE: 81 Location: ENDO Re08/11/16 SEX: F Status: DEP REF SPEC: [id number] ALEX: 08/11/167 [facility] DR: Eduardo Perdue MD REQ: [id number] RECD: 08/11/16384 STATUS: ISSAC PERAZA DR: Dany Parsons MD _ ORDERED: LEVEL IV/2 FINAL DIAGNOSIS 1. Colon, distal sigmoid at 20 cm, biopsy: -- Hyperplastic polyp. 2. Colon, proximal rectum at 14 cm, biopsy: -- Hyperplastic polyp. CLINICAL HISTORY Appetite, bowel habit - good with no blood POST-OPERATIVE DIAGNOSIS Colonoscopy to cecum/anastomosis with ease - 3+ sigmoid diverticulosis; at 20 5 mm NESP, at 12 3 cm ABELARDO biopsy. Conclusions/Plan: Diverticulosis, status post right hood; 2 small polyps GROSS DESCRIPTION 1. The specimen is received in formalin labeled, Polyp Distal Sigmoid at 20 cm, and consists of a 2.6 x 0.2 x 0.2 cm speckled manuel-pink polypoid soft tissue fragment, which is entirely submitted in one cassette. 2. The specimen is received in formalin labeled, Biopsy Proximal Rectum at 14 cm, and consists of a 0.4 x 0.3 x 0.3 cm manuel-white irregular to polypoid soft tissue fragment, which is entirely submitted in one cassette. Signed (signature on file) Alva Curran MD 02/18 1625 END OF REPORT * ML=Testing performed at Main Lab DEPARTMENT OF PATHOLOGY, [address] [place] [address] Rony Varela M.D. Director [facility] # [id number] Procedures Date Code Description Status 12/31/2017 90125 EKG Tracing & Interpretation Completed 05/18/2017 12190 ECHO Transthoracic, Real-Time 2D With Doppler And Color Completed Flow 05/18/2017 04750 ECHO Transthoracic, Real-Time 2D With Doppler And Color Completed Flow 04/20/2017 26797 EKG Tracing & Interpretation Completed 11/20/2016 71960 Treadmill Interp/Report Only Completed 11/20/2016 74778 Stress Test Supervsn W/Out I/R Completed 10/09/2016 51085 EKG Tracing & Interpretation Completed 04/09/2016 39902 Holter Monitor Review (24 hr)dr review & interp only Completed 04/08/2016 92887 ECG Monitor/Recording W/Visual Superimposition Scanning Completed 04/01/2016 30570 Stress Test Supervsn W/Out I/R Completed 04/01/2016 70826 Treadmill Interp/Report Only Completed 03/30/2016 84625 Holter Monitor Review (24 hr)dr review & interp only Completed 03/30/2016 05160 ECG Monitor/Recording W/Visual Superimposition Scanning Completed 03/13/2016 37169 EKG Tracing & Interpretation Completed 2016 45279 Color Flow Doppler/Interp & Reprt Completed 2016 72569 Pulse Wave/Continuous-Interp.RPT Completed 2016 82532 Echocardiography, Transesophageal, Real Time W/Image 2D Completed W/W/O M-M 2016 16940 EKG, Interpretation Only Completed 2016 66155 Cardioversion Completed 02/19/2016 00277 EKG, Interpretation Only Completed Encounters Type Date Location Provider Dx Diagnosis Office Visit 09/14/2018 Nick Thomson K56.609 Unsp intestnl 7:00a [facility] obst, unsp as to partial versus complete obst Office Visit 09/13/2018 Nick Thomson K56.609 Unsp intestnl 7:00a [facility] jose Whyte, unsp as to partial versus complete obst Office Visit 09/12/2018 [facility]. K56.609 Unsp intestnl 7:00a [facility] j[facility], unsp as to partial versus complete obst K43.9 Ventral hernia without obstruction or gangrene Office Visit 12/31/2017 [place] Qutaybeh S. I48.91 Unspecified atrial 8:20a Cardiology Tc Parsons fibrillation I10 Essential (primary) hypertension E66.9 Obesity, unspecified I34.0 Nonrheumatic mitral (valve) insufficiency Office Visit 04/20/2017 [place] Qutaybeh S. I48.91 Unspecified atrial 3:00p Cardiology Elisha Parsons M.D. fibrillation [facility] I10 Essential (primary) hypertension E66.9 Obesity, unspecified R53.83 Other fatigue I34.0 Nonrheumatic mitral (valve) insufficiency Office Visit 10/09/2016 8:30a [place] [facility] Elida Gillespie, I48.[address] [facility] fibrillation I10 Essential (primary) hypertension E66.9 Obesity, unspecified Office Visit 04/15/2016 [place] Qutaybeh S. I48.91 Unspecified atrial 3:20p Kirk Parsons M.D. fibrillation I10 Essential (primary) hypertension R94.39 Abnormal result of other cardiovascular function study Office Visit 03/13/2016 9:15a [place] [facility] Elida Gillespie, I10 Essential (primary) Of [facility] hypertension I48.91 Unspecified atrial fibrillation Office Visit 02/21/2016 [facility] Allison Hernandez, I48.0 Paroxysmal atrial 11:02a Assarley jung M.D. fibrillation [facility] I10 Essential (primary) hypertension Office Visit 2016 11:02a [facility] [place] I48.0 Paroxysmal atrial Assocarley M.D. fibrillation [facility] I10 Essential (primary) hypertension Office Visit 2016 [place] Qutaybeh S. I48.91 Unspecified atrial 1:21p Cardiology Tc Parsons fibrillation I10 Essential (primary) hypertension Office Visit 02/19/2016 11:01a [facility] Meghna Campos I48.0 Paroxysmal atrial [facility] fibrillation Hospitalists I10 Essential (primary) hypertension Plan of Treatment 12/31/2017 - Lorenzo Parsons M.D.I48.91 Unspecified atrial fibrillationFollow up:9 months ovI10 Essential (primary) mynuoljdbmigH01.9 Obesity, tdzxzwrompcY28.0 Nonrheumatic mitral (valve) insufficiency
[2018-09-22] MEDS ORDERED: NS 0.9% 1000 ML** 1,000 ML IV ONE (09:20)
--- NOTE | 2018-09-22 09:21 | ED ---
Abdominal Pain/Female - HPI Summary HPI Summary: Pt. is an 83 y.o female who presenting to the ER for abd. pain that started this morning. Pt. was admitted to [facility] 09/12/18 for SBO. Pt. was treated conservatively without surgery. Pt. was also treated for a UTI and recently finished antibx at home. Pt. notes urinary sxs have resolved. Pt. denies fever, chest pain, SOB, N/V. Pt. notes diarrhea that started today. Pt.'s daughter who is present states that pt. had a f.u apt. with PCP today but when she went to pick pt. up for apt. she was c/o abd. pain and wanted to come to ER for re- evaluation. Sxs are moderate in severity. No current modifying factors. - History of Current Complaint Chief Complaint: EDAbdPain Stated Complaint: PAINS IN STOMACH PER PT Time Seen by Provider: 09/22/18 09:00 Hx Obtained From: Patient Pain Intensity: 3 Allergies/Adverse Reactions: Allergies Allergy/AdvReac Type Severity Reaction Status Date / Time Penicillins Allergy Hives Verified 09/22/18 08:34 PMH/Surg Hx/FS Hx/Imm Hx Previously Healthy: Yes Endocrine/Hematology History: Denies: Hx Diabetes, Hx Thyroid Disease Cardiovascular History: Reports: Hx Hypertension, Other Cardiovascular Problems/ Disorders - A fib Denies: Hx Congestive Heart Failure, Hx Myocardial Infarction Respiratory History: Denies: Hx Asthma, Hx Chronic Obstructive Pulmonary Disease (COPD) GI History: Denies: Hx Ulcer Sensory History: Reports: Hx Contacts or Glasses Denies: Hx Hearing Aid Opthamlomology History: Reports: Hx Contacts or Glasses - Cancer History Cancer Type, Location and Year: colon cancer - w/ chemo April 2006 - Surgical History Surgery Procedure, Year, and Place: hysterectomy. gall bladder removal. colon tumor removal. cataract removal Infectious Disease History: No Infectious Disease History: Denies: Hx Clostridium Difficile, Hx Hepatitis, Hx Human Immunodeficiency Virus (HIV), Hx of Known/Suspected MRSA, Hx Shingles, Hx Tuberculosis, Traveled Outside the [place] in Last 30 Days - Family History Known Family History: Positive: Hypertension, Respiratory Disease - COPD (mother ) - Social History Occupation: Retired Lives: With Family Alcohol Use: Rare Alcohol Amount: 1x week Substance Use Type: Reports: None Hx Tobacco Use: No Smoking Status (MU): Former Smoker Type: Cigarettes Have You Smoked in the Last Year: No Review of Systems Constitutional: Negative Negative: Fever Cardiovascular: Negative Negative: Chest Pain Respiratory: Negative Negative: Shortness Of Breath Positive: Abdominal Pain, Diarrhea. Negative: Vomiting Genitourinary: Negative Negative: burning Neurological: Negative All Other Systems Reviewed And Are Negative: Yes Physical Exam Triage Information Reviewed: Yes Vital Signs On Initial Exam: Initial Vitals Temp Pulse Resp BP Pulse Ox 97.8 F 76 18 105/68 96 09/22/18 08:34 09/22/18 08:34 09/22/18 08:34 09/22/18 08:34 09/22/18 08:34 Vital Signs Reviewed: Yes Appearance: Positive: Well-Appearing - Pt. sitting up in bed in NAD. Answers questions appropriately. Family present. Skin: Positive: Warm, Dry Head/Face: Positive: Normal Head/Face Inspection Eyes: Positive: Normal, EOMI Neck: Positive: Supple Respiratory/Lung Sounds: Positive: Clear to Auscultation, Breath Sounds Present Cardiovascular: Positive: Normal, RRR Abdomen Description: Positive: Other: - ABd. is soft with mild diffuse lower tenderness. No rebound tenderness or guarding. Musculoskeletal: Positive: Normal, Strength/ROM Intact Neurological: Positive: Normal, CN Intact II-III Psychiatric: Positive: Affect/Mood Appropriate Diagnostics - Vital Signs Vital Signs Temp Pulse Resp BP Pulse Ox 09/22/18 08:34 97.8 F 76 18 105/68 96 - Laboratory Result Diagrams: 09/22/18 09:54 09/22/18 09:54 Lab Statement: Any lab studies that have been ordered have been reviewed, and results considered in the medical decision making process. Abdominal Pain Fem Course/Dx - Course Course Of Treatment: Pt. presenting for lower abd. pain and diarrhea. She is afebrile with stable VS. She has a benign abd. exam. Pt. is concerned she may have another SBO. Pt. is passing gas and has a had a few episodes of none bloody diarrhea. Labs, u/a and abd. exam ordered. Labs are unremarkable. U/A neg for infection. Abd. xray negative for signs of SBO per radiology. Cdiff is negative. On re-exam pt. notes she is feeling better and pain has resolved. Pt. comfortable with dc home with family. ADvised close f.u with PCP. WIll return to ER if sxs change or worsen. Pt. and family understand and agree with plan. - Diagnoses Differential Diagnosis: Positive: Bowel Obstruction, Urinary Tract Infection Provider Diagnoses: Abdominal pain, Diarrhea Discharge - Sign-Out/Discharge Documenting (check all that apply): Patient Departure Patient Received Moderate/Deep Sedation with Procedure: No - Discharge Plan Condition: Improved Disposition: HOME Patient Education Materials: Abdominal Pain (ED) Referrals: Dany Garcia MD [Primary Care Provider] - Additional Instructions: Schedule a close follow up appointment with your PCP Bring stool sample to out patient lab Return to ER if symptoms change or worsen - Billing Disposition and Condition Condition: IMPROVED Disposition: Home
[2018-09-22 10:14] LABS: ABS Basophils 0.1 10^3/ul (0-0.2); ABS Eosinophils 0.2 10^3/ul (0-0.6); ABS Lymphocytes 1.4 10^3/ul (1.0-4.8); ABS Monocytes 0.8 10^3/ul (0-0.8); ABS Neutrophils 6.1 10^3/ul (1.5-7.7); ABS Nucleated RBC 0 10^3/ul; Eosinophil % 2.1 %; Hematocrit 40 % (33-41); Hemoglobin 13.1 g/dL (12.0-16.0); Lymphocyte % 16.6 %; Mean Corpuscular HGB Conc 33 g/dL (31-36); Mean Corpuscular Hemoglobin 29 pg (27-31); Mean Corpuscular Volume 90 fL (80-97); Mean Platelet Volume 7.9 fL (7.4-10.4); Nucleated Red Blood Cells % 0.1; Platelet Count 235 10^3/uL (150-450); Red Blood Count 4.45 10^6 /uL (3.70-4.87); Red Cell Distribution Width 14 % (10.5-15); White Blood Count 8.7 10^3/uL (3.5-10.8)
[2018-09-22 10:34] LABS: Troponin I 0.01 ng/mL (<0.04)
[2018-09-22 10:36] LABS: Albumin 3.9 g/dL (3.2-5.2); Albumin/Globulin Ratio 1.6 (1-3); BUN/Creatinine Ratio 18.8 (8-20); C Reactive Protein 2.87 mg/L (<8.01); Calcium 9.5 mg/dL (8.6-10.3); EGFR African American 76.9 (>60); EGFR Non-African American 63.6 (>60); Globulin 2.5 g/dL (2-4); Total Bilirubin 0.4 mg/dL (0.2-1.0); Total Protein 6.4 g/dL (6.4-8.9)
[2018-09-22 12:31] LABS: Urine Color Straw
[2018-09-22 12:36] LABS: Urine Appearance Clear; Urine Bilirubin Negative (Negative); Urine Blood Negative (Negative); Urine Ketones Negative (Negative); Urine Nitrite Negative (Negative); Urine Protein Negative (Negative); Urine Urobilinogen Negative (Negative)
[2018-09-22 12:37] LABS: Urine Glucose Negative (Negative)
[2018-09-22 13:03] VITALS: BP 150/73
== END 2018-09-22 13:21 | disposition home or self-care (01) ==
LOC: ED 08:31
DX: R10.30 Lower abdominal pain, unspecified (principal); R19.7 Diarrhea, unspecified; M16.12 Unilateral primary osteoarthritis, left hip; I10 Essential (primary) hypertension; I48.91 Unspecified atrial fibrillation; Z90.710 Acquired absence of both cervix and uterus; Z90.49 Acquired absence of other specified parts of digestive tract; Z85.038 Personal history of other malignant neoplasm of large intestine; Z88.0 Allergy status to penicillin; Z87.891 Personal history of nicotine dependence
CPT/HCPCS: 36415; 74019; 80053; 81003; 83605; 83690; 84484; 85025; 86140; 87493; 93005; 96360; 99283